=== PATIENT | female | born 1945 | race Caucasian/White ===

== ENCOUNTER 2018-04-18 10:00 | Inpatient (IN) | payer OTHER ==
[~2018-04-18] VITALS: Ht 160 cm; Wt 71.7 kg
[~2018-04-18 10:00] MED LIST: BACTRIM DS TAB1 EACH PO
--- NOTE | 2018-04-18 11:59 | ULTRASOUND REPORT ---
EXAMINATION: US SUPERFICIAL IMAGING, EXTREMITY CLINICAL INFORMATION: Left lower leg pain, swelling and redness. Abscess? COMPARISON: Radiographs of left lower extremity from 04/17/2018. TECHNIQUE: Sonographic imaging of superficial tissues of the left lower extremity was performed in the area of concern using a high-resolution linear 12 MHz transducer. FINDINGS: Diffuse, moderate edema is present within the visualized subcutaneous tissues tissues of the left leg. However, there is no focal, organized/drainable fluid collection within the subcutaneous tissues. IMPRESSION: - Diffuse edema in subcutaneous tissues of the examined left leg. - No evidence of focal fluid collection/abscess.
--- NOTE | 2018-04-18 12:05 | ULTRASOUND REPORT ---
EXAMINATION: US TRIPLEX LOWER EXTREMITY, LEFT CLINICAL INFORMATION: Left leg swelling and redness. COMPARISON: None TECHNIQUE: Color-flow triplex imaging with spectral analysis and compression Doppler were performed on the left lower extremity. FINDINGS: The left common femoral vein is compressible and exhibits a normal phasic waveform; this suggests that the iliac veins are widely patent above. Within the proximal thigh, the visualized profunda femoris vein is patent. The examined greater saphenous vein and saphenofemoral junction are normal. Superficial femoral vein is patent in the proximal, mid and distal thigh. Popliteal vein appears normal to the level of the trifurcation. On jimenez scale and color Doppler images, the visualized calf veins are grossly patent. There is a small, 1.1 x 2.1 x 0.5 cm Gamboa's cyst. There is edema of subcutaneous tissues of the leg. IMPRESSION: - No evidence of deep vein thrombosis in the left lower extremity. - Small Gamboa's cyst.
[2018-04-18 14:03] LABS: ABSOLUTE BASOPHIL COUNT 0.1 /CUMM (0.0-0.2); ABSOLUTE EOSINOPHIL COUNT 0.1 /CUMM (0.0-0.7); ABSOLUTE GRANULOCYTE CT 4.9 /CUMM (1.4-6.5); ABSOLUTE LYMPH COUNT 0.9 /CUMM (1.2-3.4); ABSOLUTE MONOCYTE COUNT 0.4 /CUMM (0.10-0.60); BASOPHIL % 0.9 % (0.0-2.0); EOSINOPHIL % 1.2 % (0-5); GRANULOCYTE % 76.7 % (42.2-75.2); HEMATOCRIT 38.2 % (37-47); MEAN CORPUSCULAR HGB 33.9 PG (27.0-31.0); MEAN CORPUSCULAR HGB CONC 33.2 G/DL (33.0-37.0); MEAN PLATELET VOLUME 8.3 FL (7.4-10.4); PLATELET COUNT 261 /CUMM (130-400); RBC DISTRIBUTION WIDTH 13.6 % (11.5-14.5); RED BLOOD CELL CT 3.74 /CUMM (4.20-5.40); WHITE BLOOD CELL COUNT 6.4 /CUMM (4.8-10.8)
--- NOTE | 2018-04-18 15:22 | History & Physical ---
Myron Lopezi 04/18/18 1521: General Information and HPI MD Statement: I have seen and personally examined FORD MCCARTHY and documented this H&P. The patient is a 72 year old F who presented with a patient stated chief complaint of left leg ruptured wound Source of Information: patient Exam Limitations: no limitations History of Present Illness: 72 year old female with PMH of Rheumatoid arthritis takes rituximab every 3 months, HTN, hypothyroidism, neuropathy, allergic to clindamycin , anxiety presents to the ED with progressively deteriorating wound on her LLE. The patient apparently hit her left leg on the side-walk about 3 weeks ago and developed a hematoma on her leg. Last Thursday, she hit her leg again at the same spot on the side of her bed and ruptured the hematoma. The patient states that " blood sputtered all over the place" and it took her about 2 hours to stop the bleeding. The patient then went to a walk-in clinic and was sent home with some " oil like emulsion" and bandages. The wound apparently worsened and therefore the patient presented to [facility] ED. 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 Patient denies fever, chills, nausea, vomiting, chest pain, SOB. Allergies/Medications Allergies: Coded Allergies: cefazolin (UNKNOWN 04/17/18) cephalexin (From KEFLEX) (UNKNOWN 04/17/18) clindamycin (UNKNOWN 04/17/18) latex (UNKNOWN 04/17/18) pregabalin (From LYRICA) (UNKNOWN 04/17/18) Home Med list Alprazolam (Xanax) 0.5 MG TABLET 1 TAB PO DAILY NEEDED ANXIETY (Reported) Biotin 1,000 MCG TAB.CHEW 1 TAB PO DAILY SUPPLEMENT (Reported) Cholecalciferol (Vitamin D3) (Vitamin D) 1,000 UNIT TABLET 1 TAB PO DAILY SUPPLEMENT (Reported) Cyanocobalamin (Vitamin B-12) (Vitamin B-12) 50 MCG TABLET 1 TAB PO DAILY SUPPLEMENT (Reported) Gabapentin (Neurontin) 300 MG CAPSULE 1 CAP PO AT BEDTIME NEUROPATHY ( Reported) Lactobacillus Acidophilus (Acidophilus) 1 EACH CAPSULE 1 CAP PO DAILY SUPPLEMENT (Reported) Levothyroxine Sodium 25 MCG TABLET 1 TAB PO DAILY THYROID (Reported) Lisinopril 10 MG TABLET 1 TAB PO DAILY BLOOD PRESSURE (Reported) Sulfamethoxazole/Trimethoprim (Bactrim Ds Tablet) 800 MG-160 MG TABLET 1 TAB PO BID cellulitis Past History Travel History Traveled to [place] past 21 day No Medical History Neurological: NONE EENT: NONE Cardiovascular: hypertension Respiratory: NONE Gastrointestinal: NONE Hepatic: NONE Renal: NONE Musculoskeletal: rheumatoid arthritis Psychiatric: NONE Endocrine: hypothyroidism Surgical History Surgical History: none Past Family/Social History Psychosocial History ETOH Use: denies use Illicit Drug Use: denies illicit drug use Review of Systems Review of Systems Constitutional: Denies: chills, fever, malaise, weakness. Cardiovascular: Denies: chest pain, orthopena, palpitations, peripheral edema. Respiratory: Denies: cough, short of breath, wheezing. GI: Denies: bloating, constipation, diarrhea, nausea, vomiting. Genitourinary: Denies: discharge, frequency, nocturia, urgency. Musculoskeletal: Reports: joint pain, joint swelling, muscle pain. Skin: Denies: change in skin color, change in hair/nails. Neurological/Psychological: Denies: anxiety, depressed, dementia, emotional problems. Hematologic/Endocrine: Denies: bruising, bleeding. Exam & Diagnostic Data Last 24 Hrs of Vital Signs/I&O Vital Signs Date Time Temp Pulse Resp B/P B/P Pulse O2 O2 Flow FiO2 Mean Ox Delivery Rate 04/18 1426 98.3 78 18 137/78 99 Room Air 04/18 1113 Room Air 04/18 1004 99.5 81 20 146/85 96 Room Air Intake & Output 04/18 1600 04/18 0800 04/18 0000 Intake Total Output Total Balance Patient 156 lb Weight Weight Reported by Patient Measurement Method Physical Exam General Appearance Alert, Oriented X3, Cooperative, No Acute Distress Skin No Rashes Sepsis Skin Exam (color): Normal for Ethnicity Neck Supple Cardiovascular Regular Rate, Normal S1, Normal S2 Lungs Clear to Auscultation Abdomen Normal Bowel Sounds, Soft, No Tenderness, No Hepatospenomegaly Extremities No Edema, Normal Pulses, chronic venous stasis changes on both legs Right>Left, open wound 2.5x2.5cm on medial side of LLE Assessment/Plan Assessment: This is a 72 year old female with PMH of Rheumatoid arthritis takes rituximab every 3 months, HTN, hypothyroidism, neuropathy, allergic to clindamycin , anxiety who presented to the ED with deteriorating wound on LLE. On examination , patient has a 2.5 x 2.5 cm open wound on the medial side aspect of LLE. She has a history of MRSA infection on the same leg twice in the past. Vitals in the ED: Temp:99.5, Hr:78, RR:18, BP:137/78, saturating 99% at room air Pertinent labs: WBC:6.4, Hgb:12.7, MCV:102, HCO3:31 Problems: 1. LLE cellulitis 2. Macrocytosis 3. Meatabolic alkalosis 4. PMH of Rheumatoid arthrtis, HTN, hypothyroidism, Neuropathy LLE cellulitis -Admit the patient to Gen Med service -We will start her on Vancomycin 1000mg iv -Blood cultures and nasal surveillance cultures sent. Will follow up reports -We would consider ID consult if patient does not respond to treatment Macrocytosis -Consider B12 and folate levels Metabolic alkalosis -Would repeat BEP in the AM Continue home medications for Hypertension, Hypothyroidism and Neuropathy DVT prophylaxis: Lovenox Code status: Full code As Ranked By This Provider Problem List: 1. Cellulitis 2. Macrocytosis without anemia Core Measures/Misc (04/19) Acute Coronary Syndrome ACS Diagnosis: No Congestive Heart Failure Congestive Heart Failure Diagnosis No Cerebrovascular Accident CVA/TIA Diagnosis: No VTE (View Protocol) VTE Risk Factors Age>40 No Mechanical VTE Prophylaxis d/t N/A MechProphylax Ordered No VTE Pharm Prophylaxis d/t NA PharmProphylax ordered Sepsis (View protocol) Sepsis Present: No If YES complete Sepsis Event Note If YES complete Sepsis Event Note Deacon Vance 04/18/18 1653: Core Measures/Misc (04/19) Sepsis (View protocol) If YES complete Sepsis Event Note If YES complete Sepsis Event Note Attending MD Review Statement Attending Statement Attending MD Statement: examined this patient, discuss w/resident/PA/[employer] SALESPERSON, agreed w/resident/PA/[employer] SALESPERSON, discussed with family, reviewed EMR data (avail), discussed with nursing, discussed with case mgmt, reviewed images, amended to note Attending Assessment/Plan: 72 o/f with pmh of rheumatoid arthritis takes rituximab every 3 months, htn, hypothyroidism, neuropathy, allergic to clindamycin , anxiety came with progressive worsening of right lower xtremity ruptured blister, erythematous and found to have cellulitis with purulent drainage. USG is negative for DVT. Admit to gen/med inpatient. Broad spectrum antibiotic in immunocompormised patient with h/o MRSA. Send for nasal surveillance, blood cultures, Consider ID consult if no improvement. Resume home meds. GI/DVT prophylaxis. 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 Patient sustained a injury (3 weeks ago) to the left lower extremity resulting in blistering f/b rupture of the blister hitting a table at home. She started experiencing bloody discharge, went [facility], despite which erythema was progressively worse. She does report chills occasionally. Vital signs at presentation are significant for blood pressure 140/90, saturating on room air. Physical examination did show significant edema in the left lower extremity medial chin region with a open wound 2X2 cm, granulated mild purulent discharge. Normal white count with left shift, MCV 102. Ultrasound ruled out DVT and Gamboa's cyst. Differential Patient had erythema of left lower extremity, she had an open wound. She had a history of MRSA, on rituximab every 3 months from her arthritis. She is not a diabetic. She can be covered broadly initially and then narrowed down. Plan Admit to general medicine floor Left lower extremity cellulitis with open wound * Follow-up blood cultures and MRSA surveillance * IV vancomycin * Leg elevation * Pain management * check HbA1C History of hypertension: Continue lisinopril 10 mg daily History of hypothyroidism: Continue levothyroxine 25 mg daily History of anxiety: Continue Xanax History of Rheumatoid arthritis: stable - due for rituximab infusion Macrocytosis: continue B12 DVT prophylaxis SC heparin Code status Full code
--- NOTE | 2018-04-18 15:47 | ED UPPER/LOWER EXTREMITY COMPL ---
History of Present Illness General Chief Complaint: General Adult Stated Complaint: SENT BY CHERYL BROOKS FOR ULTRASOUND Source: patient Exam Limitations: no limitations Vital Signs & Intake/Output Vital Signs & Intake/Output Vital Signs Date Time Temp Pulse Resp B/P B/P Pulse O2 O2 Flow FiO2 Mean Ox Delivery Rate 04/18 2304 98.3 97 18 146/88 99 Room Air 04/18 1834 98.4 80 16 142/79 98 Room Air 04/18 1426 98.3 78 18 137/78 99 Room Air 04/18 1113 Room Air 04/18 1004 99.5 81 20 146/85 96 Room Air ED Intake and Output 04/19 0000 04/18 1200 Intake Total 200 Output Total Balance 200 Intake, Oral 200 Patient 159 lb 156 lb Weight Weight Chair scale Reported by Patient Measurement Method Allergies Coded Allergies: cefazolin (UNKNOWN 04/17/18) cephalexin (From KEFLEX) (UNKNOWN 04/17/18) clindamycin (UNKNOWN 04/17/18) latex (UNKNOWN 04/17/18) pregabalin (From LYRICA) (UNKNOWN 04/17/18) Reconcile Medications Alprazolam (Xanax) 0.5 MG TABLET 1 TAB PO DAILY NEEDED ANXIETY (Reported) Biotin 1,000 MCG TAB.CHEW 1 TAB PO DAILY SUPPLEMENT (Reported) Cholecalciferol (Vitamin D3) (Vitamin D) 1,000 UNIT TABLET 1 TAB PO DAILY SUPPLEMENT (Reported) Cyanocobalamin (Vitamin B-12) (Vitamin B-12) 50 MCG TABLET 1 TAB PO DAILY SUPPLEMENT (Reported) Gabapentin (Neurontin) 300 MG CAPSULE 1 CAP PO AT BEDTIME NEUROPATHY ( Reported) Lactobacillus Acidophilus (Acidophilus) 1 EACH CAPSULE 1 CAP PO DAILY SUPPLEMENT (Reported) Levothyroxine Sodium 25 MCG TABLET 1 TAB PO DAILY THYROID (Reported) Lisinopril 10 MG TABLET 1 TAB PO DAILY BLOOD PRESSURE (Reported) Sulfamethoxazole/Trimethoprim (Bactrim Ds Tablet) 800 MG-160 MG TABLET 1 TAB PO BID cellulitis Triage Note: PT TO ED FOR U/S OF LLE. WAS SEEN YESTERDAY AND TOLD TO COME BACK TODAY FOR U/S. Triage Nurses Notes Reviewed? yes HPI: 72 yo F wtih pmhx sig for htn, hypothyroid, MRSA infection presents to ED with leg pain and swelling. Seen here for same yesterday but did not stay for US. Recieved bactrim but now with worsening pain and redness. Denies fevers, + chills. No n/v/d. Past History Travel History Traveled to [place] past 21 day No Medical History Any Pertinent Medical History? none Neurological: NONE EENT: NONE Cardiovascular: hypertension Respiratory: NONE Gastrointestinal: NONE Hepatic: NONE Renal: NONE Musculoskeletal: rheumatoid arthritis Psychiatric: NONE Endocrine: hypothyroidism Surgical History Surgical History: non-contributory Psychosocial History What is your primary language Latvian Tobacco Use: Quit >30 days ago ETOH Use: denies use Illicit Drug Use: denies illicit drug use Family History Hx Contributory? No Review of Systems Review of Systems Constitutional: Denies: no symptoms. Respiratory: Denies: no symptoms. Cardiovascular: Denies: no symptoms. Gastrointestinal/Abdominal: Denies: nausea, vomiting. Skin: Reports: erythema. All Other Systems: Reviewed and Negative Physical Exam Physical Exam General Appearance: no apparent distress, alert, awake Head: normal appearance Neck: supple Cardiovascular/Respiratory: normal breath sounds Gastrointestinal: organmegaly (no tenderness) Skin: left leg with large area of erythema, scant drainage (purulent and blood), warm to touch, distally neurovascularly intact Progress Differential Diagnosis: cellulitis, CHF, contusion, DVT Plan of Care: Orders Procedure Date/time Status Regular Diet 04/19 B Active GLYCOSYLATED HGB 04/19 0600 Active CBC WITHOUT DIFFERENTIAL 04/19 0600 Active BASIC ELECTROLYTES PLUS BUN&CR 04/19 0600 Active NUTRITIONAL CONSULT 04/18 2014 Active Weight 04/18 1949 Active Vital Signs 04/18 1949 Active Teach/Educate 04/18 1949 Active Pain Treatment and Response 04/18 1949 Active Nutritional Intake, Monitor 04/18 1949 Active Isolation 04/18 1949 Active Intake & Output 04/18 194 Complete Patient Care Conference 04/18 194 Active Activity/Ambulation 04/18 194 Active Intake & Output 04/18 1838 Active BLOOD CULTURE 04/18 1752 Active Pathway - chart 04/18 1751 Active Patient Data 04/18 1751 Active Code Status 04/18 1751 Active Patient Data 04/18 1749 Active ACTIVE SURVEILLANCE NARES 04/18 1745 Active Admit to inpatient 04/18 1548 Active COMPREHENSIVE METABOLIC PANEL 04/18 1234 Complete CBC WITHOUT DIFFERENTIAL 04/18 1234 Complete House Staff 04/18 UNK Active VTE Mechanical Prophylaxis 04/18 UNK Active Vital Signs 04/18 UNK Complete Current Medications Sig/Mikael Start time Last Medication Dose Stop Time Status Admin Vancomycin HCl 1,000 MG DAILY@1400 04/19 1400 AC Sodium Chloride 250 ML (Normal Saline 0.9%) Cholecalciferol 1,000 IU DAILY 04/19 0900 AC (Vitamin D) Cyanocobalamin 250 MCG DAILY 04/19 09 AC (Vitamin B12) Lactobacillus 1 CAP DAILY 04/19 09 AC Acidophilus (Probiotic) Lisinopril 10 MG DAILY 04/19 09 AC (Prinivil) Levothyroxine Sodium 0.025 MG DAILY AC 04/19 0700 AC (Synthroid) Heparin Sodium 5,000 UNIT Q8 04/18 2200 AC 04/18 (Porcine) 213 Gabapentin 300 MG AT BEDTIME 04/18 2100 AC 04/18 (Neurontin) 213 Acetaminophen 650 MG Q6P PRN 04/18 1800 AC (Tylenol) Acetaminophen 1,000 MG Q6P PRN 04/18 1800 AC 04/19 (Ofirmev) 0020 Alprazolam 0.5 MG DAILY NEEDED PRN 04/18 1800 AC 04/18 (Xanax) 04/25 1759 2132 Laboratory Tests 04/18/18 1347: Anion Gap 9, Estimated GFR > 60, BUN/Creatinine Ratio 13.3, Glucose 110 H, Calcium 9.7, Total Bilirubin 0.8, AST 33, ALT 42, Alkaline Phosphatase 84, Total Protein 6.9, Albumin 4.3, Globulin 2.6, Albumin/Globulin Ratio 1.7, CBC w Diff NO MAN DIFF REQ, RBC 3.74 L, MCV 102.0 H, MCH 33.9 H, MCHC 33.2, RDW 13.6, MPV 8.3, Gran % 76.7 H, Lymphocytes % 14.2 L, Monocytes % 7.0, Eosinophils % 1.2, Basophils % 0.9, Absolute Granulocytes 4.9, Absolute Lymphocytes 0.9 L, Absolute Monocytes 0.4, Absolute Eosinophils 0.1, Absolute Basophils 0.1 Microbiology 04/18 2215 BLOOD: Blood Culture - RECD 04/18 2145 UPPER RESP: Surveillance Culture - RECD 04/18 2130 BLOOD: Blood Culture - RECD Diagnostic Imaging: Viewed by Me: Ultrasound. Comments: 72 yo with hpi as above with clear, large area cellulitis worsening on OP abx. Mild temp here. US's negative fro deep space infection or DVT. Hx of MRSA and thus started on vancomycin. Spoke with Dr. Siddiqui, patient's covering PCP regarding admission and they agree Departure Departure Disposition: STILL A PATIENT Condition: Stable Clinical Impression Primary Impression: Cellulitis Qualifiers: Site of cellulitis: extremity Site of cellulitis of extremity: lower extremity Laterality: left Qualified Code: L03.116 - Cellulitis of left lower limb Referrals: Jordan Zhang MD (PCP/Family) Departure Forms: Customer Survey General Discharge Information
[2018-04-18] MEDS ORDERED: LISINOPRIL10 M1 PO (17:53)
[2018-04-18] MEDS ORDERED: LEVOTHYROXINE25 MCG PO (17:53)
[2018-04-18] MEDS ORDERED: NEURONTIN300 M1 PO (17:54)
[2018-04-18] MEDS ORDERED: XANAX0.5 M1 PO (17:54)
[2018-04-18] MEDS ORDERED: VITAMIN D1000 UNIT PO (17:55)
[2018-04-18] MEDS ORDERED: VITAMIN B-1250 MC1 PO (17:55)
[2018-04-18] MEDS ORDERED: ACIDOPHILUS1 EACH PO (17:55)
[2018-04-18] MEDS ORDERED: BIOTIN1000 MC1 PO (17:55)
[2018-04-18 23:04] VITALS: BP 146/88
[2018-04-19 06:14] VITALS: BP 114/64
--- NOTE | 2018-04-19 07:27 | PN- Housestaff ---
Heena Lopez 04/19/18 0727: Subjective Follow-up For: LLE non-healing wound Subjective: Patient was seen and examined at bedside. She has no complaints. The patient states she has not had antibiotics since admission. EMR data states she did receive a dose of Vancomycin in the ED. Patient insists she did not get it. The wound on her leg looks about the same. Patient denies fevr, chills, nausea, vomiting. Review of Systems Constitutional: Reports: see HPI. Objective Last 24 Hrs of Vital Signs/I&O Vital Signs Date Time Temp Pulse Resp B/P B/P Pulse O2 O2 Flow FiO2 Mean Ox Delivery Rate 04/19 1402 98.7 77 18 146/60 99 Room Air 04/19 0902 75 138/80 04/19 0800 Room Air 04/19 0614 97.8 59 20 114/64 95 Room Air 04/18 2304 98.3 97 18 146/88 99 Room Air 04/18 1834 98.4 80 16 142/79 98 Room Air 04/18 1426 98.3 78 18 137/78 99 Room Air Intake & Output 04/19 1600 04/19 0800 04/19 0000 Intake Total 460 200 Output Total Balance 460 200 Intake, IV 100 Intake, Oral 360 200 Patient 158 lb 159 lb Weight Weight Chair scale Measurement Method Physical Exam General Appearance: Alert, Oriented X3, Cooperative, No Acute Distress Skin: No Rashes, changes of chronic venous stasis on bilateral lower limbs Neck: Supple Cardiovascular: Regular Rate, Normal S1, Normal S2 Lungs: Clear to Auscultation, Normal Air Movement Abdomen: Normal Bowel Sounds, Soft, No Tenderness Extremities: 2.5x 2.5 cm open wound on the LLE, Current Medications: Current Medications Sig/Mikael Start time Last Medication Dose Route Stop Time Status Admin Acetaminophen 650 MG Q6P PRN 04/18 1800 AC PO Acetaminophen 1,000 MG Q6P PRN 04/18 1800 AC 04/19 IV 0020 Alprazolam 0.5 MG DAILY NEEDED PRN 04/18 1800 AC 04/18 PO 04/25 Cholecalciferol 1,000 IU DAILY 04/19 900 AC 04/19 PO 08 Cyanocobalamin 250 MCG DAILY 04/19 900 AC 04/19 PO 08 Gabapentin 300 MG AT BEDTIME 04/18 2100 AC 04/18 PO 2133 Heparin Sodium 5,000 UNIT Q8 04/18 2200 AC 04/19 (Porcine) SC 1356 Ibuprofen 400 MG ONCE ONE 04/19 0545 DC 04/19 PO 04/19 0546 0622 Lactobacillus 1 CAP DAILY 04/19 0900 AC 04/19 Acidophilus PO 0857 Levothyroxine Sodium 0.025 MG DAILY AC 04/19 0700 AC 04/19 PO 0529 Lisinopril 10 MG DAILY 04/19 0900 AC 04/19 PO 0902 Melatonin 5 MG AT BEDTIME 04/19 2100 AC PO Vancomycin HCl 1,000 MG DAILY@1400 04/19 1400 AC 04/19 Sodium Chloride 250 ML IV 1357 Vancomycin HCl 1,000 MG ONCE ONE 04/18 1400 DC 04/18 Sodium Chloride 250 ML IV 04/18 1459 1359 Assessment/Plan Assessment: This is a 72 year old female with PMH of Rheumatoid arthritis takes rituximab every 3 months, HTN, hypothyroidism, neuropathy, allergic to clindamycin , anxiety who presented to the ED with deteriorating wound on LLE. On examination , patient has a 2.5 x 2.5 cm open wound on the medial side aspect of LLE. She has a history of MRSA infection on the same leg twice in the past. Vitals in the ED: Temp:99.5, Hr:78, RR:18, BP:137/78, saturating 99% at room air Pertinent labs: WBC:6.4, Hgb:12.7, MCV:102, HCO3:31 Problems: 1. LLE cellulitis 2. Macrocytosis 3. Meatabolic alkalosis 4. PMH of Rheumatoid arthrtis, HTN, hypothyroidism, Neuropathy LLE cellulitis/non-healing wound -Wound care input appreciated. Xeroform dressing. -We will continue her on Vancomycin 1000mg iv. ID consult placed -Blood cultures and nasal surveillance cultures sent. Will follow up reports. Macrocytosis -Consider B12 and folate levels Metabolic alkalosis -HCO3 improved to 28 Continue home medications for Hypertension, Hypothyroidism and Neuropathy DVT prophylaxis: Lovenox Code status: Full code Problem List: 1. Macrocytosis without anemia 2. Macrocytosis 3. Non-healing wound of lower extremity Pain Ratin Pain Location: none Pain Goal: Remain pain free Pain Plan: none Tomorrow's Labs & Rationales: cbc Deacon Vance 04/19/18 1039: Attending MD Review Statement Attending Statement Attending MD Statement: examined this patient, discuss w/resident/PA/[employer]OR [employer]URSING, agreed w/resident/PA/[employer], discussed with family, reviewed EMR data (avail), discussed with nursing, discussed with case mgmt, reviewed images, amended to note Attending Assessment/Plan: 72 o/f with pmh of rheumatoid arthritis takes rituximab every 3 months, htn, hypothyroidism, neuropathy, allergic to clindamycin , anxiety came with progressive worsening of left lower extremity ruptured blister, erythematous and found to have cellulitis with purulent drainage. USG is negative for DVT. Overnight patient had improvement. Vitals stable. WBC 10>6 (trending down) Continue Broad spectrum antibiotic in immunocompormised patient with h/o MRSA. Follow up nasal surveillance, blood cultures, Consider ID consult if no improvement. Resumed home meds. GI/DVT prophylaxis. full code
[2018-04-19 09:16] LABS: ABSOLUTE BASOPHIL COUNT 0 /CUMM (0.0-0.2); ABSOLUTE EOSINOPHIL COUNT 0.3 /CUMM (0.0-0.7); ABSOLUTE GRANULOCYTE CT 2.5 /CUMM (1.4-6.5); ABSOLUTE MONOCYTE COUNT 0.5 /CUMM (0.10-0.60)
[2018-04-19 09:37] LABS: ABSOLUTE LYMPH COUNT 1.2 /CUMM (1.2-3.4); BASOPHIL % 0.8 % (0.0-2.0); EOSINOPHIL % 6.8 % (0-5); GRANULOCYTE % 54.9 % (42.2-75.2); MEAN CORPUSCULAR HGB 34.5 PG (27.0-31.0); MEAN CORPUSCULAR HGB CONC 34.5 G/DL (33.0-37.0); MEAN CORPUSCULAR VOLUME 99.8 FL (81.0-99.0); MEAN PLATELET VOLUME 9.2 FL (7.4-10.4); PLATELET COUNT 220 /CUMM (130-400); RBC DISTRIBUTION WIDTH 14.3 % (11.5-14.5); RED BLOOD CELL CT 3.18 /CUMM (4.20-5.40); WHITE BLOOD CELL COUNT 4.5 /CUMM (4.8-10.8)
[2018-04-19 09:40] LABS: HEMATOCRIT 31.8 % (37-47)
--- NOTE | 2018-04-19 11:31 | Cons- Wound Care ---
General Information and HPI Consulting Request Date of Consult: 04/19/18 Requested By: Deacon Vance MD Reason for Consult: Left lower extremity traumatic ulcer present on admission History of Present Illness: Patient is 72-year-old history of rheumatoid arthritis not on prednisone with chronic edema is admitted because of a worsening traumatic ulcer of the left anterior leg. Patient reports having injured her leg several weeks ago and developed subsequent hematoma. Recently she began injured her leg with spontaneous evacuation of the hematoma and resultants small draining ulcer. She denies history of peripheral vascular disease in the past. She has had past ulcers which have required intervention per mellitus due to venous stasis and edema Allergies/Medications Allergies: Coded Allergies: cefazolin (UNKNOWN 04/17/18) cephalexin (From KEFLEX) (UNKNOWN 04/17/18) clindamycin (UNKNOWN 04/17/18) latex (UNKNOWN 04/17/18) pregabalin (From LYRICA) (UNKNOWN 04/17/18) Home Med List: Alprazolam (Xanax) 0.5 MG TABLET 1 TAB PO DAILY NEEDED ANXIETY (Reported) Biotin 1,000 MCG TAB.CHEW 1 TAB PO DAILY SUPPLEMENT (Reported) Cholecalciferol (Vitamin D3) (Vitamin D) 1,000 UNIT TABLET 1 TAB PO DAILY SUPPLEMENT (Reported) Cyanocobalamin (Vitamin B-12) (Vitamin B-12) 50 MCG TABLET 1 TAB PO DAILY SUPPLEMENT (Reported) Gabapentin (Neurontin) 300 MG CAPSULE 1 CAP PO AT BEDTIME NEUROPATHY ( Reported) Lactobacillus Acidophilus (Acidophilus) 1 EACH CAPSULE 1 CAP PO DAILY SUPPLEMENT (Reported) Levothyroxine Sodium 25 MCG TABLET 1 TAB PO DAILY THYROID (Reported) Lisinopril 10 MG TABLET 1 TAB PO DAILY BLOOD PRESSURE (Reported) Sulfamethoxazole/Trimethoprim (Bactrim Ds Tablet) 800 MG-160 MG TABLET 1 TAB PO BID cellulitis Review of Systems Review of Systems: She denies claudication Past History Travel History Traveled to [place] past 21 day No Medical History Blood Transfusion Hx: No Neurological: NONE EENT: NONE Cardiovascular: hypertension Respiratory: NONE Gastrointestinal: irritable bowel syndrome Hepatic: NONE Renal: NONE Musculoskeletal: rheumatoid arthritis Psychiatric: anxiety, depression Endocrine: hypothyroidism Blood Disorders: NONE Cancer(s): NONE Surgical History Surgical History: non-contributory Psychosocial History Where Do You Live? Home Services at Home: None Smoking Status: Former Smoker ETOH Use: denies use Illicit Drug Use: denies illicit drug use Exam & Diagnostic Data Vital Signs and I&O Vital Signs Result Date Time B/P 138/80 04/19 0902 Pulse 75 04/19 0902 O2 Delivery Room Air 04/19 0800 Pulse Ox 95 04/19 0614 Temp 97.8 04/19 0614 Resp 20 04/19 0614 Intake & Output 04/19 0000 04/18 1600 04/18 0800 Intake Total 200 Output Total Balance 200 Intake, Oral 200 Patient 159 lb 156 lb Weight Weight Chair scale Reported by Patient Measurement Method Exam of the left lower extremity shows there to be 2+ pitting edema over the anterior aspect is a evidence of residual hematoma measuring approximately 3 x 2 and half centimeters within this is a small area of ulceration approximately 1 x 1 cm there is faint periwound erythema there is no undermining sinus tracking or exposed bone. She remains afebrile with normal white count. Distal pulses are unable and palpated in the setting of edema Assessment/Plan Impression/Plan: 72-year-old with Venous insufficiency has a nonhealing traumatic wound of the left lower extremity. Her failure to heal is primarily related to persistent edema. Whether there is soft tissue skin infection is unclear given normal temperature and white count. Recommendation is for aggressive leg elevation wound cleansing and topical Xeroform placed daily. Concur with infectious disease evaluation regarding need for antibiotics. Her old records will be reviewed regarding prior testing of her distal circulation Consult Acknowledgment - Thank you for your consult request.
[2018-04-19 14:02] VITALS: BP 146/60
--- NOTE | 2018-04-19 15:23 | Cons- Infect Disease ---
General Information and HPI Consulting Request Date of Consult: 04/19/18 Requested By: Deacon Vance MD Reason for Consult: Rule out cellulitis of the left lower extremity Source of Information: patient, old records History of Present Illness: This is a 72-year-old woman with a history of rheumatoid arthritis, maintained on 3.75 mg of prednisone daily and Rituximab every 3 months, hypertension, hypothyroidism, with a history of a left leg infection secondary to MRSA, with chronic edema and discoloration of the left lower extremity, status post a fall on her left leg 2 weeks prior to admission, resulting in a hematoma, with rupture 1 week prior to admission after repeat trauma, seen in the emergency room one day prior to admission after she was referred from an urgent care center because of concern regarding her wound, found to be afebrile with a normal white blood cell count, with an x-ray negative for any acute process, given 1 dose of Bactrim and discharged with a prescription for Bactrim, admitted on April 18 after she returned to the emergency room for an ultrasound of the left leg. On admission she was afebrile. Laboratory data revealed a white blood cell of 6000, BUN/creatinine 12 and 0.9, with normal liver enzymes. An ultrasound revealed diffuse edema in the subcutaneous tissues with no focal fluid collection. A Doppler of the left lower extremity was negative for a DVT. She was begun on Vancomycin. She has remained afebrile since admission. Presently she notes mild discomfort in the left leg. Allergies/Medications Allergies: Coded Allergies: cefazolin (UNKNOWN 04/17/18) cephalexin (From KEFLEX) (UNKNOWN 04/17/18) clindamycin (UNKNOWN 04/17/18) latex (UNKNOWN 04/17/18) pregabalin (From LYRICA) (UNKNOWN 04/17/18) Home Med List: Alprazolam (Xanax) 0.5 MG TABLET 1 TAB PO DAILY NEEDED ANXIETY (Reported) Biotin 1,000 MCG TAB.CHEW 1 TAB PO DAILY SUPPLEMENT (Reported) Cholecalciferol (Vitamin D3) (Vitamin D) 1,000 UNIT TABLET 1 TAB PO DAILY SUPPLEMENT (Reported) Cyanocobalamin (Vitamin B-12) (Vitamin B-12) 50 MCG TABLET 1 TAB PO DAILY SUPPLEMENT (Reported) Gabapentin (Neurontin) 300 MG CAPSULE 1 CAP PO AT BEDTIME NEUROPATHY ( Reported) Lactobacillus Acidophilus (Acidophilus) 1 EACH CAPSULE 1 CAP PO DAILY SUPPLEMENT (Reported) Levothyroxine Sodium 25 MCG TABLET 1 TAB PO DAILY THYROID (Reported) Lisinopril 10 MG TABLET 1 TAB PO DAILY BLOOD PRESSURE (Reported) Sulfamethoxazole/Trimethoprim (Bactrim Ds Tablet) 800 MG-160 MG TABLET 1 TAB PO BID cellulitis Past History Travel History Traveled to [place] past 21 day No Medical History Blood Transfusion Hx: No Neurological: NONE EENT: NONE Cardiovascular: hypertension Respiratory: NONE Gastrointestinal: irritable bowel syndrome Hepatic: NONE Renal: NONE Musculoskeletal: rheumatoid arthritis Psychiatric: anxiety, depression Endocrine: hypothyroidism Blood Disorders: NONE Cancer(s): NONE History of MRSA: Yes History of VRE: No History of CDIFF: No Isolation History: Contact Surgical History Surgical History: non-contributory Psychosocial History Where Do You Live? Home Services at Home: None Smoking Status: Former Smoker ETOH Use: denies use Illicit Drug Use: denies illicit drug use Review of Systems Review of Systems All Other Systems: Reviewed and Negative Exam & Diagnostic Data Last 24 Hrs of Vital Signs/I&O Vital Signs Date Time Temp Pulse Resp B/P B/P Pulse O2 O2 Flow FiO2 Mean Ox Delivery Rate 04/19 1402 98.7 77 18 146/60 99 Room Air 04/19 0902 75 138/80 04/19 0800 Room Air 04/19 0614 97.8 59 20 114/64 95 Room Air 04/18 2304 98.3 97 18 146/88 99 Room Air 04/18 1834 98.4 80 16 142/79 98 Room Air Intake & Output 04/19 1600 04/19 0800 04/19 0000 Intake Total 600 460 200 Output Total Balance 600 460 200 Intake, IV 100 Intake, Oral 600 360 200 Patient 158 lb 159 lb Weight Weight Chair scale Measurement Method Physical Exam Other Physical Findings: She is awake and alert in no acute distress. She is afebrile. Skin reveals no rash. HEENT exam is negative. Neck is supple with no adenopathy. Lungs are clear. Heart regular rhythm with no murmur. Abdomen is soft, nontender with positive bowel sounds. Back no CVA tenderness. Extremities left leg edema, with mild erythema and warmth, minimally tender to palpation, with an open wound ; 1+ pulses bilaterally. Neuro is without focality. Last 24 Hours of Lab Results: Laboratory Tests 04/19 627 Chemistry Sodium (137 - 145 mmol/L) 136 L Potassium (3.5 - 5.1 mmol/L) 4.0 Chloride (98 - 107 mmol/L) 102 Carbon Dioxide (22 - 30 mmol/L) 28 Anion Gap (5 - 16) 6 BUN (7 - 17 mg/dL) 12 Creatinine (0.5 - 1.0 mg/dL) 0.8 Estimated GFR (>60 ml/min) > 60 BUN/Creatinine Ratio (7 - 25 %) 15.0 Hemoglobin A1c (4.2 - 5.8 %) 5.3 Hematology CBC w Diff NO MAN DIFF REQ WBC (4.8 - 10.8 /CUMM) 4.5 L RBC (4.20 - 5.40 /CUMM) 3.18 L Hgb (12.0 - 16.0 G/DL) 11.0 L Hct (37 - 47 %) 31.8 L MCV (81.0 - 99.0 FL) 99.8 H MCH (27.0 - 31.0 PG) 34.5 H MCHC (33.0 - 37.0 G/DL) 34.5 RDW (11.5 - 14.5 %) 14.3 Plt Count (130 - 400 /CUMM) 220 MPV (7.4 - 10.4 FL) 9.2 Gran % (42.2 - 75.2 %) 54.9 Lymphocytes % (20.5 - 51.1 %) 27.0 Monocytes % (1.7 - 9.3 %) 10.5 H Eosinophils % (0 - 5 %) 6.8 H Basophils % (0.0 - 2.0 %) 0.8 Absolute Granulocytes (1.4 - 6.5 /CUMM) 2.5 Absolute Lymphocytes (1.2 - 3.4 /CUMM) 1.2 Absolute Monocytes (0.10 - 0.60 /CUMM) 0.5 Absolute Eosinophils (0.0 - 0.7 /CUMM) 0.3 Absolute Basophils (0.0 - 0.2 /CUMM) 0 Last 24 Hours of Noe Results: Superficial culture April 17 positive for mixed chapo with 2 gram-negative rods isolated, with the gram stain revealing no white blood cells, rare gram- positive cocci and rare gram-positive rods Blood cultures x 2 April 18 negative Diagnostic Data Recent Imaging Findings: Ultrasound of the left leg April 18 reveals diffuse edema in the subcutaneous tissues with no evidence of any focal fluid collection Doppler of the left lower extremity April 18 negative for DVT Assessment/Plan Assessment/Plan Impression: This is a 72-year-old woman with a history of rheumatoid arthritis, maintained on 3.75 mg of prednisone daily and Rituximab every 3 months, with chronic edema and discoloration of the left lower extremity following previous infection with MRSA, status post a fall on her left leg 2 weeks prior to admission, resulting in a hematoma, with rupture 1 week prior to admission after repeat trauma, admitted on April 18 for further evaluation of her left leg wound, found to be afebrile with a normal white blood cell count and with an ultrasound negative for any focal fluid collection. Though she does have mild inflammation of the left lower extremity I suspect this represents a residual hematoma and, given the absence of any fever or leukocytosis, am not convinced that she has a cellulitis. She does report chronic edema and discoloration of the left lower extremity, likely secondary to venous insufficiency; therefore her baseline exam is not normal. The superficial culture growing gram-negative rods likely represents skin contamination and should not require treatment. At this point, as she appears to be stable, feel that she can be followed off antibiotics. Suggestion: 1. Elevation of the left leg 2. Local wound care to the left leg wound 3. Consider Vascular surgery evaluation at some point 4. Discontinue Vancomycin and follow off antibiotics Consult Acknowledgment - Thank you for your consult request.
[2018-04-19 22:18] VITALS: BP 150/82
[2018-04-20 06:17] VITALS: BP 130/62
--- NOTE | 2018-04-20 07:19 | PN- Housestaff ---
Heena Lopez 04/20/18 0719: Subjective Follow-up For: LLE cellulitis Subjective: Patient was seen and examiend at bedside. She states she sees some improvement in her foot. She complains of some pain in her ear. She also reports that she has some swelling in her eye. She denies fever, chills, nausea, vomiting. Review of Systems Constitutional: Reports: see HPI. Objective Last 24 Hrs of Vital Signs/I&O Vital Signs Date Time Temp Pulse Resp B/P B/P Pulse O2 O2 Flow FiO2 Mean Ox Delivery Rate 04/20 0951 75 130/62 04/20 0617 98.7 75 20 130/62 97 Room Air 04/19 2218 98.4 63 18 150/82 99 Room Air Intake & Output 04/20 1600 04/20 0800 04/20 0000 Intake Total 360 480 Output Total Balance 360 480 Intake, Oral 360 480 Physical Exam General Appearance: Alert, Oriented X3, Cooperative, No Acute Distress Cardiovascular: Regular Rate, Normal S1, Normal S2, No Murmurs Lungs: Clear to Auscultation Abdomen: Normal Bowel Sounds, Soft, No Tenderness Extremities: chronic venous status changes on both lower extremities, wound on johnson LLE Assessment/Plan Assessment: This is a 72 year old female with PMH of Rheumatoid arthritis takes rituximab every 3 months, HTN, hypothyroidism, neuropathy, allergic to clindamycin , anxiety who presented to the ED with deteriorating wound on LLE. On examination , patient has a 2.5 x 2.5 cm open wound on the medial side aspect of LLE. She has a history of MRSA infection on the same leg twice in the past. Vitals in the ED: Temp:99.5, Hr:78, RR:18, BP:137/78, saturating 99% at room air Pertinent labs: WBC:6.4, Hgb:12.7, MCV:102, HCO3:31 Problems: 1. LLE cellulitis 2. Macrocytosis 3. Meatabolic alkalosis 4. PMH of Rheumatoid arthrtis, HTN, hypothyroidism, Neuropathy LLE cellulitis/non-healing wound -Wound care input appreciated. Xeroform dressing. -ID recommendation appreciated. The patient does not require antibiotics at this time -Blood cultures and nasal surveillance cultures sterile Macrocytosis -Consider B12 and folate levels Metabolic alkalosis -HCO3 improved to 28 Continue home medications for Hypertension, Hypothyroidism and Neuropathy DVT prophylaxis: Lovenox Code status: Full code Problem List: 1. Non-healing wound of lower extremity 2. Macrocytosis without anemia 3. Macrocytosis 4. Cellulitis Pain Ratin Pain Location: none Pain Goal: Remain pain free Pain Plan: none Tomorrow's Labs & Rationales: none Deacon Vance 04/20/18 0959: Attending MD Review Statement Attending Statement Attending MD Statement: examined this patient, discuss w/resident/PA/BARN AND PROPERTY MANAGER, agreed w/resident/PA/[employer] AND PROPERTY MANAGER, discussed with family, reviewed EMR data (avail), discussed with nursing, discussed with case mgmt, reviewed images, amended to note Attending Assessment/Plan: 72 o/f with pmh of rheumatoid arthritis takes rituximab every 3 months, htn, hypothyroidism, neuropathy, allergic to clindamycin , anxiety came with progressive worsening of left lower extremity ruptured blister, erythematous. USG is negative for DVT. Initially thought to be cellulitis but now appears to be more chronic skin changes from venous stasis. Overnight patient with similar changes. No dramatic improvement. OFF antibiotic as per ID. Follow up nasal surveillance, blood cultures remain negative. c/w home meds. Wound consult appreciated, vascular surgery recommendations to follow up outpatient. GI/DVT prophylaxis. full code Anticipate discharge soon
--- NOTE | 2018-04-20 08:26 | Cons- Vascular Surgery ---
General Information and HPI Consulting Request Date of Consult: 04/20/18 Requested By: Deacon Vance MD Reason for Consult: leg wound PAD Source of Information: patient, EMS Exam Limitations: no limitations History of Present Illness: Pt is a 72y/o F w hx RA on steroids who banged left johnson and developed hematoma and cellulitis. I have seen her in past for her chronic leg swelling. She denies symptoms that could be considered intermittent claudication or rest pain. Allergies/Medications Allergies: Coded Allergies: cefazolin (UNKNOWN 04/17/18) cephalexin (From KEFLEX) (UNKNOWN 04/17/18) clindamycin (UNKNOWN 04/17/18) latex (UNKNOWN 04/17/18) pregabalin (From LYRICA) (UNKNOWN 04/17/18) Home Med List: Alprazolam (Xanax) 0.5 MG TABLET 1 TAB PO DAILY NEEDED ANXIETY (Reported) Biotin 1,000 MCG TAB.CHEW 1 TAB PO DAILY SUPPLEMENT (Reported) Cholecalciferol (Vitamin D3) (Vitamin D) 1,000 UNIT TABLET 1 TAB PO DAILY SUPPLEMENT (Reported) Cyanocobalamin (Vitamin B-12) (Vitamin B-12) 50 MCG TABLET 1 TAB PO DAILY SUPPLEMENT (Reported) Gabapentin (Neurontin) 300 MG CAPSULE 1 CAP PO AT BEDTIME NEUROPATHY ( Reported) Lactobacillus Acidophilus (Acidophilus) 1 EACH CAPSULE 1 CAP PO DAILY SUPPLEMENT (Reported) Levothyroxine Sodium 25 MCG TABLET 1 TAB PO DAILY THYROID (Reported) Lisinopril 10 MG TABLET 1 TAB PO DAILY BLOOD PRESSURE (Reported) Sulfamethoxazole/Trimethoprim (Bactrim Ds Tablet) 800 MG-160 MG TABLET 1 TAB PO BID cellulitis Current Medications: Current Medications Sig/Mikael Start time Last Medication Dose Route Stop Time Status Admin Acetaminophen 650 MG Q6P PRN 04/18 1800 AC PO Acetaminophen 1,000 MG Q6P PRN 04/18 1800 AC 04/19 IV 0020 Alprazolam 0.5 MG DAILY NEEDED PRN 04/18 1800 AC 04/19 PO 04/25 1759 215 Cholecalciferol 1,000 IU DAILY 04/19 0900 AC 04/19 PO 08 Cyanocobalamin 250 MCG DAILY 04/19 0900 AC 04/19 PO 0857 Gabapentin 300 MG AT BEDTIME 04/18 2100 AC 04/19 PO 215 Heparin Sodium 5,000 UNIT Q8 04/18 2200 AC 04/20 (Porcine) SC 0547 Ibuprofen 0 .STK-MED ONE 04/20 0419 DC PO Ibuprofen 400 MG Q6P PRN 04/20 0415 AC 04/20 PO 0432 Lactobacillus 1 CAP DAILY 04/19 0900 AC 04/19 Acidophilus PO 0857 Levothyroxine Sodium 0.025 MG DAILY AC 04/19 0700 AC 04/20 PO 0547 Lisinopril 10 MG DAILY 04/19 0900 AC 04/19 PO 0902 Melatonin 5 MG AT BEDTIME 04/19 2100 AC 04/19 PO 2158 Prednisone 3.75 MG DAILY 04/19 2024 AC PO Vancomycin HCl 1,000 MG DAILY@1400 04/19 1400 DC 04/19 Sodium Chloride 250 ML IV 1357 Past History Medical History Blood Transfusion Hx: No Neurological: NONE EENT: NONE Cardiovascular: hypertension Respiratory: NONE Gastrointestinal: irritable bowel syndrome Hepatic: NONE Renal: NONE Musculoskeletal: rheumatoid arthritis Psychiatric: anxiety, depression Endocrine: hypothyroidism Blood Disorders: NONE Cancer(s): NONE Surgical History Pertinent Surgical History: non-contributory Psychosocial History Where Do You Live? Home Services at Home: None Smoking Status: Former Smoker ETOH Use: denies use Illicit Drug Use: denies illicit drug use Review of Systems Review of Systems EENTM: Denies: eye pain, hearing changes. Cardiovascular: Reports: peripheral edema. Respiratory: Denies: short of breath. GI: Denies: bloody stool. Genitourinary: Denies: nocturia. Musculoskeletal: Reports: joint pain. Skin: Reports: erythema. Neurological/Psychological: Reports: anxiety. Hematologic/Endocrine: Reports: bruising. Exam & Diagnostic Data Vital Signs and I&O Vital Signs Date Time Temp Pulse Resp B/P B/P Pulse O2 O2 Flow FiO2 Mean Ox Delivery Rate 04/20 617 98.7 75 20 130/62 97 Room Air 04/19 2218 98.4 63 18 150/82 99 Room Air 04/19 1402 98.7 77 18 146/60 99 Room Air 04/19 0902 75 138/80 Intake & Output 04/20 1600 04/20 0800 04/20 0000 04/19 1600 04/19 0800 04/19 0000 Intake Total 360 480 600 460 200 Output Total Balance 360 480 600 460 200 Intake, IV 100 Intake, Oral 360 480 600 360 200 Patient 158 lb 159 lb Weight Weight Chair scale Measurement Method Physical Exam: gen a& ox3 neck supple chest cta b heart rrr s1s2 abd soft ext left johnson 3cm area of subdermal hematoma, + drainage, + surrounding erythema pulses b/l Assessment/Plan Assessment/Plan a/p cellulitis after trauma ot left johnson, chronic swelling (likely from chronic steroids), intact foot pulses -cont abx and wound care -no immediate vascular interventioni recommended -will follow progress at oupt when d/c'd Problem List: 1. Cellulitis 2. Non-healing wound of lower extremity Other Findings/Comments: Dr Zhang Consult Acknowledgment - Thank you for your consult request. Attending MD Review Statement Attending Statement Attending MD Statement: examined this patient
--- NOTE | 2018-04-20 08:53 | PN- Wound Care ---
Subjective Subjective: Patient feels better though continues to have lower extremity edema Objective Vital Signs and I&Os Vital Signs Result Date Time Pulse Ox 97 04/20 617 B/P 130/62 04/20 617 O2 Delivery Room Air 04/20 617 Temp 98.7 04/20 617 Pulse 75 04/20 617 Resp 20 04/20 617 Intake & Output 04/20 0000 04/19 1600 04/19 0800 Intake Total 480 600 460 Output Total Balance 480 600 460 Intake, IV 100 Intake, Oral 480 600 360 Patient 158 lb Weight Erythema appears to have receded there continues to be edemaErythema appears to have receded there continues a small open wound at the inferior margin of the hematoma Impression/Plan Impression/Plan Impression/Plan: 72-year-old woman with traumatic hematoma and subsequent ulceration status post spontaneous evacuation antibiotics have been discontinued patient can be followed in the wound care center for application of multilayer compression dressing
[2018-04-20 09:51] VITALS: BP 130/62
--- NOTE | 2018-04-20 10:11 | Patient Discharge Instructions ---
Discharge Instructions General Discharge Information You were seen/treated for: Left Leg cellulitis Special Instructions: 1. Please inform your PCP about your admission at [facility] 2. Please follow up with your regular vascular surgeon within a week of discharge 3. Please follow up with your regular ENT doctor for your earache Diet Continue normal diet: Yes Activity Full Activity/No Limits: No Acute Coronary Syndrome Inclusion Criteria At DC or during hospital stay patient has or had the following: ACS DIAGNOSIS No Discharge Core Measures Meds if any: Prescribed or Continued at Discharge Meds if any: NOT Prescribed or Continued at Discharge Congestive Heart Failure Inclusion Criteria At DC or during hospital stay patient has or had the following: CHF DIAGNOSIS No Discharge Core Measures Meds if any: Prescribed or Continued at Discharge Meds if any: NOT Prescribed or Continued at Discharge Cerebrovascular accident Inclusion Criteria At DC or during hospital stay patient has or had the following: CVA/TIA Diagnosis No Discharge Core Measures Meds if any: Prescribed or Continued at Discharge Meds if any: NOT Prescribed or Continued at Discharge Venous thromboembolism Inclusion Criteria VTE Diagnosis No VTE Type NONE VTE Confirmed by (Test) NONE Discharge Core Measures - Per Current guidelines, there needs to be overlap - treatment for the first 5 days of Warfarin therapy. - If discharged on Warfarin prior to 5 days of - overlap therapy, the patient will need to be - assessed for post discharge needs including - *Post discharge parental anticoagulation - *Warfarin and/or parental anticoagulation education - *Follow up date to check INR post discharge At least 5 days overlap therapy as Inpatient No Meds if any: Prescribed or Continued at Discharge Note: Overlap Therapy is Warfarin and Anticoagulant Meds if any: NOT Prescribed or Continued at Discharge
--- NOTE | 2018-04-20 11:23 | PN- Infect Dx ---
Subjective Subjective: Afebrile on steroids. She complains of a left sided earache. She does not report discomfort in the lower extremities. Objective Last 24 Hrs of Vital Signs/I&O Vital Signs Date Time Temp Pulse Resp B/P B/P Pulse O2 O2 Flow FiO2 Mean Ox Delivery Rate 04/20 0951 75 130/62 04/20 0617 98.7 75 20 130/62 97 Room Air 04/19 2218 98.4 63 18 150/82 99 Room Air 04/19 1402 98.7 77 18 146/60 99 Room Air Intake & Output 04/20 1600 04/20 0800 04/20 0000 Intake Total 360 480 Output Total Balance 360 480 Intake, Oral 360 480 Physical Exam Other Physical Findings: She appears comfortable in no acute distress Extremities left leg swelling, with discoloration, with minimal erythema; no warmth and minimal tenderness to palpation, with no active bleeding from her wound Results Last 24 Hours of Lab Results: No labs from today Last 24 Hours of Noe Results: Blood cultures 2 April 18 negative Left leg wound superficial culture (sent from the ER on April 17) positive for gram-negative rods Assessment/Plan ID Impression: Stable, with her temperatures remaining normal (now back on steroids) and with her white blood cell count normal, now off antibiotics, with little evidence for cellulitis of her left lower extremity status post trauma, with a resulting hematoma, 2 weeks prior to admission. The positive superficial culture of her left leg wound is of unclear significance and, presumably, represents contamination. Vascular surgery evaluation noted and appreciated. Suggestion: 1. Continue elevation of the left leg 2. Further management of her left leg wound per Vascular surgery 3. Continue to follow off antibiotics
--- NOTE | 2018-04-20 13:10 | Discharge Summary ---
Visit Information Visit Dates Admission Date: 04/18/18 Discharge Date: 04/20/2018 Hospital Course Course Attending Physician: Deacon Vance MD Primary Care Physician: Jordan Zhang MD Hospital Course: is a 72 year old female with PMH of Rheumatoid arthritis, gets Rituximab infusions every 3 months, HTN, hypothyroidism, neuropathy and anxiety. She presented to the [facility] ED with a non-healing wound on her LLE. The patient had apparently hit her leg on something in her sidewalk leading to the development of a hematoma. She hit her leg again which burst the hematoma. The wound on her leg persisted since then. On examination in the ED, patient had a 2.5 x 2.5 cm open wound on the medial side aspect of her LLE. She also had changes consistent with chronic venous insufficiency on her legs. An Extremity Venous Study was performed and had the following impression: - No evidence of deep vein thrombosis in the left lower extremity. - Small Gamboa's cyst. A Poplitieal Fossa Ultrasound had the following impression: - Diffuse edema in subcutaneous tissues of the examined left leg. - No evidence of focal fluid collection/abscess. Vitals in the ED: Temp:99.5, Hr:78, RR:18, BP:137/78, saturating 99% at room air Pertinent labs: WBC:6.4, Hgb:12.7, MCV:102, HCO3:31 Blood cultures and Surveillance cutures for MRSA were negative. The patient was admitted to the [facility] service. Given her regular steroid use and Rituximab infusions, the patient was given broad antibiotic coverage with Vancomycin. Infectious Disease was consulted who recommended to follow the patient off of antibiotics. Vancomycin was subsequently stopped. A wound consult was placed and Xeroform dressings to the wound were recommended for the patient. Vascular surgery was consulted. They recommended outpatient follow up for the patient. The lab work for the patient revealed mild macrocytic anemia for which she would need to follow up with her primary care doctor as an outpatient. She also complained of a mild earache whilst in the hospital. An outpatient referral to an ENT surgeon was advised. Allergies: Coded Allergies: cefazolin (UNKNOWN 04/17/18) cephalexin (From KEFLEX) (UNKNOWN 04/17/18) clindamycin (UNKNOWN 04/17/18) latex (UNKNOWN 04/17/18) pregabalin (From LYRICA) (UNKNOWN 04/17/18) Disposition Summary Disposition Principal Diagnosis: LLE cellulitis Additional Diagnosis: Macrocytic Anemia Discharge Disposition: home or self care Discharge Instructions General Discharge Information Code Status: Full Code Patient's Diet: Regular Diet Patient's Activity: As tolerated Follow-Up Instructions/Appts: The patient would follow up with her Primary care doctor. She would need evaluation for her Macrocytic anemia. The patient would also follow up with Vascular Surgery as an outpatient. The patient would follow up with ENT outpatient. Medications at Discharge Discharge Medications: Stop taking the following medications: Sulfamethoxazole/Trimethoprim (Bactrim Ds Tablet) 800 MG-160 MG TABLET ORAL TWICE DAILY Qty = 20 Continue taking these medications: Lisinopril (Lisinopril) 10 MG TABLET 1 Tablet ORAL DAILY Comments: Last Taken:04/20/18 Time:0900 AM Levothyroxine Sodium (Levothyroxine Sodium) 25 MCG TABLET 1 Tablet ORAL DAILY Comments: Last Taken:04/20/18 Time:0545 AM Gabapentin (Neurontin) 300 MG CAPSULE 1 Capsule ORAL AT BEDTIME Comments: Last Taken:04/19/21 Time:2100 Alprazolam (Xanax) 0.5 MG TABLET 1 Tablet ORAL DAILY NEEDED Comments: DID NOT TAKE IN HOSPITAL Cyanocobalamin (Vitamin B-12) (Vitamin B-12) 50 MCG TABLET 1 Tablet ORAL DAILY Comments: Last Taken:04/19/18 Time:9:00 AM Lactobacillus Acidophilus (Acidophilus) 1 EACH CAPSULE 1 Capsule ORAL DAILY Comments: Last Taken:04/20/18 Time:0900 AM Cholecalciferol (Vitamin D3) (Vitamin D) 1,000 UNIT TABLET 1 Tablet ORAL DAILY Comments: Last Taken:04/20/18 Time:900 AM Biotin (Biotin) 1,000 MCG TAB.CHEW 1 Tablet ORAL DAILY Comments: DID NOT TAKE IN HOSPITAL Copies To: Vicente HAN,Jordan Reddy MD Review Statement Documenting Attending: Deacon Vance MD Other Findings: 72 o/f with pmh of rheumatoid arthritis takes rituximab every 3 months, htn, hypothyroidism, neuropathy, allergic to clindamycin , anxiety came with progressive worsening of left lower extremity ruptured blister, erythematous. USG is negative for DVT. Initially thought to be cellulitis but now appears to be more chronic skin changes from venous stasis. OFF antibiotic as per ID. Follow up nasal surveillance MRSA negative, blood cultures remain negative. c/w home meds. Wound consult appreciated, vascular surgery recommendations to follow up outpatient. FOLLOW UP Vascualar surgery as scheduled PCP in 1-2 weeks of discharge
== END 2018-04-20 18:10 | DRG 603 ==
LOC: ERH 10:00 → 2NA 15:48 → ERHI 15:48 → ENRESERV 18:05 → CANRESERV 18:05 → ENRESERV 19:04 → ENTRNSPT 19:24 → 2NA 19:43 → CMPTRNSPT 19:49 → ENTRNSPT 04-20 17:44 → EDTRNSPTSTS 04-20 17:55 → 2NA 04-20 18:10 → CMPTRNSPT 04-20 18:10
PROVIDERS: Emergency Medicine; Internal Medicine
DX: L03.116 Cellulitis of left lower limb (principal); E87.3 Alkalosis; E03.9 Hypothyroidism, unspecified; G62.9 Polyneuropathy, unspecified; D75.89 Other specified diseases of blood and blood-forming organs; M06.9 Rheumatoid arthritis, unspecified; I10 Essential (primary) hypertension; Z79.899 Other long term (current) drug therapy; F41.9 Anxiety disorder, unspecified; Z88.1 Allergy status to other antibiotic agents; Z91.040 Latex allergy status; W18.30XA Fall on same level, unspecified, initial encounter; Y92.009 Unspecified place in unspecified non-institutional (private) residence as the place of occurrence of the external cause; F32.9 Major depressive disorder, single episode, unspecified; Z87.891 Personal history of nicotine dependence; S81.802A Unspecified open wound, left lower leg, initial encounter
CPT/HCPCS: 2NAP; 36592; 76881; 82436; 87040; 96374; J0131; J1644; J3370; J7040